=== PATIENT | male | born 1960 | race Hispanic/Latino ===

== ENCOUNTER 2021-03-04 21:02 | Emergency (ER) | payer SELFPAY ==
--- NOTE | 2021-03-04 22:45 | ER ---
Nurse's Notes [facility] Name: Vito Morejon Age: 60 yrs Sex: Male : 1960 Arrival Date: 03/04/2021 Time: 21:07 Bed 14 Private MD: Diagnosis: Irritant contact dermatitis due to plants, except food Presentation: 03/04 21:28 Chief complaint: Patient states: Rash caused by poison Karishma x 2 weeks. Red Rash noted on ca1 L back, L side of chest, vesicular rash on L forearm, L ellbow. Coronavirus screen: Client denies travel out of the [place] in the last 14 days. At this time, the client does not indicate any symptoms associated with coronavirus-19. Ebola Screen: Patient negative for fever greater than or equal to 101.5 degrees Fahrenheit, and additional compatible Ebola Virus Disease symptoms Patient denies exposure to infectious person. Patient denies travel to an Ebola-affected area in the 21 days before illness onset. No symptoms or risks identified at this time. Initial Sepsis Screen: Does the patient meet any 2 criteria? No. Patient's initial sepsis screen is negative. Does the patient have a suspected source of infection? No. Patient's initial sepsis screen is negative. Risk Assessment: Do you want to hurt yourself or someone else? Patient reports no desire to harm self or others. Onset of symptoms was March 04, 2021. 21:28 Method Of Arrival: Ambulatory ca1 21:28 Acuity: RONEY 4 ca1 Historical: - Allergies: 21:30 No Known Allergies; ca1 - Home Meds: 21:30 None [Active]; ca1 - PMHx: 21:30 None; ca1 - Immunization history:: Client reports having NOT received the Covid vaccine. Flu vaccine is not up to date. - Social history:: Smoking status: Patient denies any tobacco usage or history of. Screenin:10 Abuse screen: Denies threats or abuse. Denies injuries from another. Nutritional bs2 screening: No deficits noted. Tuberculosis screening: No symptoms or risk factors identified. Fall Risk None identified. Assessment: 22:10 General: Appears uncomfortable, obese, well groomed, well developed, well nourished, bs2 Behavior is calm, cooperative, appropriate for age. Pain: Denies pain. Neuro: No deficits noted. Cardiovascular: No deficits noted. Respiratory: No deficits noted. GI: No signs and/or symptoms were reported involving the gastrointestinal system. : No signs and/or symptoms were reported regarding the genitourinary system. EENT: No signs and/or symptoms were reported regarding the EENT system. Derm: Rash noted that is draining clear fluid, macular, itchy, raised, vesicular, on back, chest and right arm Reports burning, itching. Vital Signs: 21:28 BP 124 / 68; Pulse 74; Resp 16 S; Temp 97.4(TE); Pulse Ox 99% ; Weight 99.79 kg (R); ca1 Height 5 ft. 6 in. (167.64 cm) (R); Pain 6/10; 22:58 BP 126 / 65 RA Sitting (auto/lg); Pulse 74 MON; Resp 16 S; Temp 98.0(O); Pulse Ox 100% bs2 on R/A; Pain 0/10; 21:28 Body Mass Index 35.51 (99.79 kg, 167.64 cm) ca1 ED Course: 21:07 Patient arrived in ED. cf2 21:30 Triage completed. ca1 21:30 Arm band placed on right wrist. ca1 22:04 Dionte Dutton PA is PHCP. cp 22:04 Carlos Mendosa MD is Attending Physician. cp 22:10 Patient has correct armband on for positive identification. Bed in low position. Call bs2 light in reach. Side rails up X 1. 22:10 No provider procedures requiring assistance completed. bs2 22:18 Judy Mitchell RN is Primary Nurse. bs2 23:05 Patient did not have IV access during this emergency room visit. bs2 Administered Medications: No medications were administered Outcome: 22:44 Discharge ordered by . cp 23:05 Discharged to home ambulatory. bs2 23:05 Condition: stable 23:05 Discharge instructions given to patient, Instructed on discharge instructions, follow up and referral plans. medication usage, Demonstrated understanding of instructions, follow-up care, medications, Prescriptions given X 2. 23:06 Patient left the ED. bs2 Signatures: Dionte Dutton PA PA Lindsey Sunshine RN RN ca1 Thony Collado cf2 Judy Mitchell RN RN bs2
--- NOTE | 2021-03-04 22:45 | EDPHYS ---
Physician Documentation [facility] Name: Vito Morejon Age: 60 yrs Sex: Male : 1960 Arrival Date: 03/04/2021 Time: 21:07 Bed 14 Private MD: ED Physician Carlos Mendosa HPI: 03/04 22:36 This 60 yrs old Male presents to ER via Ambulatory with complaints of Rash. cp 22:36 The patient's rash thought to be caused by contact with poison karishma. The rash is located cp on the back, chest, abdomen and left arm. The rash can be described as vesicular. Onset: The symptoms/episode began/occurred 2 week(s) ago. Associated signs and symptoms: Pertinent positives: burning sensation, itching, Pertinent negatives: difficulty breathing, fever, swelling of lips, swelling of throat, swelling of tongue. Severity of symptoms: in the emergency department the symptoms are worse moderately. Treatment given at home: OTC lotion/cream. Historical: - Allergies: 21:30 No Known Allergies; ca1 - Home Meds: 21:30 None [Active]; ca1 - PMHx: 21:30 None; ca1 - Immunization history:: Client reports having NOT received the Covid vaccine. Flu vaccine is not up to date. - Social history:: Smoking status: Patient denies any tobacco usage or history of. ROS: 22:39 Eyes: Negative for injury, pain, redness, and discharge. cp 22:39 Constitutional: Negative for body aches, chills, fever, poor PO intake. 22:39 ENT: Negative for ear pain, sore throat, difficulty swallowing, difficulty handling secretions. 22:39 Respiratory: Negative for shortness of breath, wheezing. 22:39 Abdomen/GI: Negative for abdominal pain, nausea, vomiting, and diarrhea. 22:39 Skin: Positive for rash, of the left arm and abdomen and chest and back. 22:39 All other systems are negative. Exam: 22:40 Head/Face: Normocephalic, atraumatic. cp 22:40 Constitutional: The patient appears in no acute distress, alert, awake, non-toxic, well developed, well nourished. 22:40 Cardiovascular: Rate: normal. 22:40 Respiratory: the patient does not display signs of respiratory distress, Respirations: normal, no use of accessory muscles, no retractions. 22:40 Skin: rash can be described as vesicular, on the left arm and abdomen and chest and back. Vital Signs: 21:28 BP 124 / 68; Pulse 74; Resp 16 S; Temp 97.4(TE); Pulse Ox 99% ; Weight 99.79 kg (R); ca1 Height 5 ft. 6 in. (167.64 cm) (R); Pain 6/10; 22:58 BP 126 / 65 RA Sitting (auto/lg); Pulse 74 MON; Resp 16 S; Temp 98.0(O); Pulse Ox 100% bs2 on R/A; Pain 0/10; 21:28 Body Mass Index 35.51 (99.79 kg, 167.64 cm) ca1 MDM: 22:36 Patient medically screened. cp 22:42 Differential diagnosis: allergic reaction, dermatitis, cellulitis, herpes zoster. Data cp reviewed: vital signs, nurses notes, and as a result, I will discharge patient. Counseling: I had a detailed discussion with the patient and/or guardian regarding: the historical points, exam findings, and any diagnostic results supporting the discharge/admit diagnosis, to return to the emergency department if symptoms worsen or persist or if there are any questions or concerns that arise at home. Administered Medications: No medications were administered Disposition: 23:21 Co-signature as Attending Physician, Carlos Mendosa MD. rn Disposition Summary: 03/04/21 22:44 Discharge Ordered Location: Home cp Problem: new cp Symptoms: are unchanged cp Condition: Stable cp Diagnosis - Irritant contact dermatitis due to plants, except food cp Followup: cp - With: Private Physician - When: 2 - 3 days - Reason: Worsening of condition Discharge Instructions: - Discharge Summary Sheet cp - Poison Karishma Dermatitis cp Forms: - Medication Reconciliation Form cp - Thank You Letter cp - Antibiotic Education cp - Prescription Opioid Use cp Prescriptions: - Prednisone 20 mg Oral Tablet - take 2 tablets by ORAL route once daily for 5 days then take 1 tablet daily for cp 5 days; 15 tablet; Refills: 0, Product Selection Permitted - Triamcinolone Acetonide 0.5 % Topical Cream - apply 1 application by TOPICAL route 2 times per day As needed apply to areas cp of rash except face; 1 tube; Refills: 0, Product Selection Permitted Signatures: Carlos Mendosa MD MD rn Dionte Dutton PA PA cp Acob, Lindsey, RN RN ca1
[2021-03-04 23:15] VITALS: BP 126/65; TEMP 98; O2SAT 100
== END 2021-03-04 23:06 | disposition home or self-care (01) ==
LOC: ER 21:02
DX: L24.7 Irritant contact dermatitis due to plants, except food (principal)
CPT/HCPCS: 99282

== ENCOUNTER 2021-04-13 08:10 | Inpatient (IN) | payer SELFPAY ==
[2021-04-13] MEDS ORDERED: ACETAMINOPHEN 500 MG TAB ONE (09:07)
[2021-04-13] MEDS ORDERED: NA CHLORIDE 0.9% 1,000 ML ONE ×3 (09:08→21:25)
[2021-04-13] MEDS ORDERED: PIPER/TAZO/NS 3.375gm 3.375 GM/100 ML BAG ONE ×4 (09:08→21:25)
[2021-04-13] MEDS ORDERED: MORPHINE 4 MG/ML SYR ONE (09:08)
[2021-04-13] MEDS ORDERED: ONDANSETRON 4 MG/2 ML VIAL ONE ×4 (09:08→21:25)
[2021-04-13 09:10] LABS: Protime INR 1.4
[2021-04-13 09:30] LABS: ALT/SGPT 44 U/L (12-78); AST/SGOT 31 U/L (15-37); Albumin 3.4 g/dL (3.4-5.0); Alkaline Phosphatase 90 U/L (45-117); BUN Blood Urea Nitrogen 10 mg/dL (7-18); Bicarbonate 22 mmol/L (21-32); Bilirubin Direct 0.3 mg/dL (0-0.2); Bilirubin Total 0.7 mg/dL (0.2-1.0); Glucose Level 248 mg/dL (74-106); Lipase 33 U/L (73-393); Magnesium 1.9 mg/dL (1.8-2.4); NT PRO-BNP 106 pg/mL (<125); Potassium 3.8 mmol/L (3.5-5.1); Sodium Level 134 mmol/L (136-145); Troponin (Emerg Dept Use Only) < 0.02 ng/mL (0.0-0.045)
--- NOTE | 2021-04-13 09:35 | RAD REPORT ---
EXAM DESCRIPTION: RAD - Chest Single View - 04/13/2021 9:16 am CLINICAL HISTORY: ABDOMINAL DISTENTION COMPARISON: None TECHNIQUE: AP portable chest image was obtained 04/13/2021 9:16 am . FINDINGS: Lung volumes are low but clear of a peripheral mass or consolidation. Lung base atelectasi s present. No failure or volume overload. Heart and vasculature are normal. No measurable pleural eff usion and no pneumothorax. No acute bony abnormality seen. No acute aortic findings suspected. IMPRESSION: Limited portable study without acute cardiopulmonary finding.
[2021-04-13] MEDS ORDERED: FAMOTIDINE 20 MG/2 ML VIAL IV ONE (09:39)
[2021-04-13 10:14] LABS: Absolute Lymphocytes (CBC) 0.5 K/uL (0.7-4.9); Basophils % 0.2 % (0-1.3); Hematocrit 37.9 % (39.6-49.0); Lymphocytes % 11.2 % (15.3-44.8); MPV 7.7 fL (7.6-11.3); RBC Red Blood Cell Count 5.31 M/uL (4.33-5.43)
--- NOTE | 2021-04-13 10:20 | RAD REPORT ---
EXAM DESCRIPTION: CT - Abdomen Pelvis W Contrast - 04/13/2021 9:32 am CLINICAL HISTORY: ABD PAIN COMPARISON: Chest Single View dated 04/13/2021 TECHNIQUE: Biphasic, helical CT imaging of the abdomen and pelvis was performed following 100 ml non -ionic IV contrast. No oral contrast administered. All CT scans are performed using dose optimization technique as appropriate and may include automated exposure control or mA/KV adjustment according to patient size. FINDINGS: Scarring and/ or atelectasis changes are present in each lung base with no acute pleural o r parenchymal process suspected. No pericardial thickening or effusion. Liver shows a diffuse fatty infiltration pattern with no focal liver lesion. No portal vein abnormali ty identified. Pancreas and spleen also without focal abnormalities. Gallbladder and biliary tree are also without suspicious finding. Gallstones can be occult on CT imaging. Symmetric renal function is seen with no hydronephrosis or suspicious renal mass. No pyelonephritis o r acute parenchymal process. Contracted urinary bladder shows no gross abnormality. No adrenal abnorm alities. No gastric dilatation or wall thickening. Prominent fluid-filled small bowel loops are present. Story are mildly prominent. This is believed to be reactive enteritis from subsequently detailed findings. The appendix is abnormal. Although air filled, the appendix is enlarged with poorly defined story. Th ere is edematous/inflammatory stranding throughout the periappendiceal fat with small amounts of free intraperitoneal fluid present. Several punctate peritoneal extraluminal free air collections are not ed. There is no abscess or drainable fluid collection at this time. Tip of the cecum is slightly thic kened. Large intestine is otherwise unremarkable. No mass or bulky lymphadenopathy. No abdominal wall hernia seen. No suspicious bony findings. Findings discussed by telephone with the referring physician 10:15 a.m.. IMPRESSION: Perforated appendicitis. Air, fluid and stranding are present in the peritoneal cavity primarily in the periappendiceal region. There is no abscess at this time. Prominent fluid-filled small bowel loops likely secondary response to the perforated appendicitis. No small bowel obstruction. Diffuse fatty infiltration of the liver.
--- NOTE | 2021-04-13 10:29 | EDPHYS ---
Physician Documentation [facility] Name: Vito Morejon Age: 60 yrs Sex: Male : 1960 Arrival Date: 04/13/2021 Time: 08:31 Bed 19 Private MD: ED Physician Dionte Smith HPI: 04/13 10:09 This 60 yrs old Male presents to ER via EMS with complaints of GI Bleeding. varun 10:09 The patient presents to the emergency department with rectal bleeding, a small amount. varun Historical: - Allergies: 09:16 No Known Allergies; tr6 - Home Meds: 09:16 None [Active]; tr6 - PMHx: 09:16 None; tr6 - PSHx: 09:16 None; tr6 - Immunization history:: Adult Immunizations up to date, Client reports having NOT received the Covid vaccine. - Social history:: Smoking status: unknown Patient uses alcohol, on a daily basis. claims drinking about a 6 pack/day. ROS: 10:11 Eyes: Negative for injury, pain, redness, and discharge, ENT: Negative for injury, varun pain, and discharge, Neck: Negative for injury, pain, and swelling, Respiratory: Negative for shortness of breath, cough, wheezing, and pleuritic chest pain, Back: Negative for injury and pain, : Negative for injury, bleeding, discharge, and swelling, MS/Extremity: Negative for injury and deformity, Skin: Negative for injury, rash, and discoloration, Neuro: Negative for headache, weakness, numbness, tingling, and seizure, Psych: Negative for depression, anxiety, suicide ideation, homicidal ideation, and hallucinations, Allergy/Immunology: Negative for hives, rash, and allergies, Endocrine: Negative for neck swelling, polydipsia, polyuria, polyphagia, and marked weight changes, Hematologic/Lymphatic: Negative for swollen nodes, abnormal bleeding, and unusual bruising. 10:11 Constitutional: Positive for chills, fever, malaise. 10:11 Cardiovascular: Positive for palpitations. 10:11 Respiratory: Positive for cough. 10:11 Abdomen/GI: Positive for abdominal pain, abdominal cramps, abdominal distension, of the right upper quadrant, left upper quadrant, right lower quadrant and left lower quadrant. Exam: 10:11 Constitutional: This is a well developed, well nourished patient who is awake, alert, varun and in no acute distress. Head/Face: Normocephalic, atraumatic. Eyes: Pupils equal round and reactive to light, extra-ocular motions intact. Lids and lashes normal. Conjunctiva and sclera are non-icteric and not injected. Cornea within normal limits. Periorbital areas with no swelling, redness, or edema. ENT: Nares patent. No nasal discharge, no septal abnormalities noted. Tympanic membranes are normal and external auditory canals are clear. Oropharynx with no redness, swelling, or masses, exudates, or evidence of obstruction, uvula midline. Mucous membranes moist. Neck: Trachea midline, no thyromegaly or masses palpated, and no cervical lymphadenopathy. Supple, full range of motion without nuchal rigidity, or vertebral point tenderness. No Meningismus. Chest/axilla: Normal chest wall appearance and motion. Nontender with no deformity. No lesions are appreciated. Cardiovascular: Regular rate and rhythm with a normal S1 and S2. No gallops, murmurs, or rubs. Normal PMI, no JVD. No pulse deficits. Respiratory: Lungs have equal breath sounds bilaterally, clear to auscultation and percussion. No rales, rhonchi or wheezes noted. No increased work of breathing, no retractions or nasal flaring. Back: No spinal tenderness. No costovertebral tenderness. Full range of motion. Male : Normal genitalia with no discharge or lesions. Skin: Warm, dry with normal turgor. Normal color with no rashes, no lesions, and no evidence of cellulitis. MS/ Extremity: Pulses equal, no cyanosis. Neurovascular intact. Full, normal range of motion. Neuro: Awake and alert, GCS 15, oriented to person, place, time, and situation. Cranial nerves II-XII grossly intact. Motor strength 5/5 in all extremities. Sensory grossly intact. Cerebellar exam normal. Normal gait. Psych: Awake, alert, with orientation to person, place and time. Behavior, mood, and affect are within normal limits. 10:11 Cardiovascular: Rate: tachycardic, Rhythm: regular, Pulses: Pulses are 4+ in bilateral radial, brachial, femoral, popliteal, posterior tibial and and dorsalis pedis arteries.. Heart sounds: normal, normal S1and S2, no S3 or S4, no murmur, no rub, no gallop, Edema: is not appreciated, JVD: is not appreciated. 10:11 ECG was reviewed by the Attending Physician. 10:11 Abdomen/GI: Inspection: distension, that is moderate, Bowel sounds: normal, Palpation: moderate abdominal tenderness, in the right upper quadrant, left upper quadrant, right lower quadrant and left lower quadrant, Liver: no appreciated palpable abnormalities, Hernia: not appreciated. Vital Signs: 08:56 BP 117 / 79; Pulse 132; Resp 20 S; Temp 103.1; Pulse Ox 96% on R/A; iw 09:14 BP 105 / 58; Pulse 133; Resp 18; Temp 103.2; Pulse Ox 94% on R/A; Weight 99.79 kg; tr6 09:47 BP 106 / 63; Pulse 127; Resp 19 S; Pulse Ox 98% on R/A; jd3 11:27 BP 87 / 59; Pulse 113; Resp 19 S; Pulse Ox 95% on R/A; jd3 14:13 BP 90 / 59; Pulse 121; Resp 17 S; Pulse Ox 96% on R/A; jd3 14:28 BP 93 / 63; Pulse 119; Resp 20 S; Temp 99.4(O); Pulse Ox 97% on R/A; jd3 MDM: 08:31 Patient medically screened. varun 10:29 Differential diagnosis: gastritis, diverticulitis, appendicitis, bowel obstruction, varun coronary artery disease, cholecystitis, Cholelithiasis, diverticulitis, gastritis, Mesenteric ischemia or infarction, non-specific abd pain, pancreatitis, Peptic Ulcer Disease, Perf. Duodenal Ulcer, urinary tract infection. Data reviewed: vital signs, nurses notes, lab test result(s), EKG, radiologic studies, CT scan, plain films. Data interpreted: quality assurance monitor chassis: rate is 127 beats/min, rhythm is regular, Pulse oximetry: on room air is 127 %. Test interpretation: by ED physician or midlevel provider: ECG, plain radiologic studies. Counseling: I had a detailed discussion with the patient and/or guardian regarding: the historical points, exam findings, and any diagnostic results supporting the discharge/admit diagnosis, lab results, radiology results, the need for further work-up and treatment in the hospital. 04/13 08:33 Order name: Basic Metabolic Panel; Complete Time: 10:09 varun 04/13 08:33 Order name: CBC with Diff; Complete Time: : [facility] 04/13 08:33 Order name: LFT's; Complete Time: : [facility] 04/13 08:33 Order name: Magnesium; Complete Time: 10: [facility] 04/13 08:33 Order name: NT PRO-BNP; Complete Time: 10: [facility] 04/13 08:33 Order name: PT-INR; Complete Time: 10: [facility] 04/13 08:33 Order name: Troponin (emerg Dept Use Only); Complete Time: 10: [facility] 04/13 08:33 Order name: Lipase; Complete Time: 10: [facility] 04/13 08:33 Order name: Type And Screen; Complete Time: : [facility] 04/13 10:16 Order name: CBC Smear Scan; Complete Time: : [facility] 04/13 10:41 Order name: SARS-COV-2 RT PCR; Complete Time: : [facility] 04/13 10:43 Order name: CREATININE WHOLE BLOOD; Complete Time: : [facility] 04/13 12:30 Order name: ABO/RH no charge; Complete Time: : [facility] 04/13 08:33 Order name: XRAY Chest (1 view); Complete Time: : [facility] 04/13 08:33 Order name: CT Abd/Pelvis - IV Contrast Only; Complete Time: : [facility] 04/13 21:35 Order name: CBC with Manual Differential tr6 04/13 21:53 Order name: CBC with Manual Differential; Complete Time: 07:20 [facility] 04/13 22:43 Order name: Hemoglobin A1c; Complete Time: 07:20 [facility] 04/14 01:56 Order name: CBC with Automated Diff; Complete Time: 07:20 [facility] 04/14 02:05 Order name: Basic Metabolic Panel; Complete Time: 07:20 [facility]MS 04/14 02:05 Order name: Phosphorus; Complete Time: 07:20 [facility] 04/14 02:05 Order name: Magnesium; Complete Time: 07:20 [facility] 04/14 02:08 Order name: Lactate; Complete Time: 07:20 [facility]MS 04/14 02:59 Order name: Procalcitonin; Complete Time: 07:20 [facility]MS 04/14 06:55 Order name: Wound Culture EDMS 04/14 06:58 Order name: Anaerobic Culture; Complete Time: 07:20 [facility] 04/14 17:45 Order name: Glucose, Ancillary Testing EDMS 04/13 08:33 Order name: EKG; Complete Time: 08:34 [facility] 04/13 08:33 Order name: Cardiac monitoring; Complete Time: 09:14 [facility] 04/13 08:33 Order name: EKG - Nurse/Tech; Complete Time: 09:14 [facility] 04/13 08:33 Order name: IV Saline Lock; Complete Time: 09:14 [facility] 04/13 08:33 Order name: Labs collected and sent; Complete Time: 09:14 [facility] 04/13 08:33 Order name: O2 Per Protocol; Complete Time: 09:14 [facility] 04/13 08:33 Order name: O2 Sat Monitoring; Complete Time: 09:14 [facility] 04/13 10:26 Order name: CONS Physician Consult EDMS EC:11 Rate is 131 beats/min. Rhythm is regular. QRS [place] is Normal. VT interval is normal. [facility] QRS interval is normal. QT interval is normal. No Q waves. T waves are Normal. No ST changes noted. Clinical impression: Sinus tachycardia and No evidence of ischemia. Interpreted by me. Reviewed by me. Administered Medications: 08:54 Drug: Tylenol 1000 mg Route: PO; iw 08:55 Drug: NS 0.9% 1000 ml Route: IV; Rate: 1 bolus; Site: left antecubital; iw 08:55 Drug: morphine 4 mg Route: IVP; Site: left antecubital; iw 08:55 Drug: Zofran (Ondansetron) 4 mg Route: IVP; Site: left antecubital; iw 09:47 Drug: Zosyn (piperacillin-tazobactam) 3.375 grams Route: IVPB; Infused Over: 60 mins; jd3 Site: left antecubital; 09:47 Drug: Pepcid (famotidine) 20 mg Route: IVP; Site: left antecubital; jd3 21:36 Drug: NS 0.9% 500 ml Route: IV; Rate: bolus; Site: left antecubital; em 22:01 Drug: NS 0.9% 500 ml Route: IV; Rate: bolus; Site: left antecubital; em Disposition Summary: 04/13/21 10:29 Hospitalization Ordered Hospitalization Status: Inpatient Admission [facility] Provider: Pool Jacobs cha Condition: Stable varun Problem: new varun Symptoms: have improved varun Bed/Room Type: Standard varun Location: Telemetry/MedSurg (Inpatient)(04/14/21 19:48) Room Assignment: 208(04/14/21 19:48) mw Diagnosis - Acute appendicitis with generalized peritonitis - perforated varun - Obesity, unspecified varun - Fever, unspecified varun Forms: - Medication Reconciliation Form varun - SBAR form varun Signatures: Dispatcher [employer] EDMS Nessa Che RN RN mw Anderson, Corey, MD MD cha Munoz, Edgar RN Alexus Thacker RN RN iw Carlos Enrique Jay, VETERINARIAN HELPER-C VETERINARIAN HELPER-Corie1 Federico Dominique RN RN Bridget Pozo RN RN tr6 Corrections: (The following items were deleted from the chart) 09:45 08:34 CORONAVIRUS+MR.LAB.BRZ ordered. EDMS EDMS 10:31 10:29 Elevated white blood cell count varun [facility] 16:58 10:29 Telemetry/MedSurg (Inpatient) [facility] 16:58 10:29 varun 04/14 19:48 04/13 16:58 [facility] ER HOLD [facility] 04/14 19:48 04/13 16:58 ERHOLD- [facility]
--- NOTE | 2021-04-13 10:29 | ER ---
Nurse's Notes [facility] Name: Vito Morejon Age: 60 yrs Sex: Male : 1960 Arrival Date: 04/13/2021 Time: 08:31 Bed 19 Private MD: Diagnosis: Acute appendicitis with generalized peritonitis-perforated;Obesity, unspecified;Fever, unspecified Presentation: 04/13 09:14 Chief complaint: EMS states: lower abdominal pain since Tuesday. bright red blood in tr6 stool several times. fever. Coronavirus screen: Client presents with at least one sign or symptom that may indicate coronavirus-19. Standard/surgical mask placed on the client. Provider contacted for isolation considerations. Ebola Screen: No symptoms or risks identified at this time. Initial Sepsis Screen: Does the patient meet any 2 criteria? Temp <36.0*C (96.8*F)) or > 38.3*C (100.9*F). HR > 90 bpm. Yes Does the patient have a suspected source of infection? No. Patient's initial sepsis screen is negative. Risk Assessment: Do you want to hurt yourself or someone else? Patient reports no desire to harm self or others. Onset of symptoms is unknown. 09:14 Method Of Arrival: EMS: [facility] tr6 09:14 Acuity: RONEY 2 tr6 Triage Assessment: 09:16 General: Appears uncomfortable, Behavior is calm, cooperative, appropriate for age. tr6 Pain: Complains of pain in lower abdomen. EENT: No deficits noted. Neuro: No deficits noted. Cardiovascular: Rhythm is sinus tachycardia. Respiratory: No deficits noted. GI: Abdomen is round distended, obese, Last BM was April 13, 2021. Abdomen is tender to palpation in right lower quadrant and left lower quadrant Reports lower abdominal pain, bloating, rectal bleeding. : No deficits noted. Derm: No deficits noted. Musculoskeletal: No deficits noted. Historical: - Allergies: 09:16 No Known Allergies; tr6 - Home Meds: 09:16 None [Active]; tr6 - PMHx: 09:16 None; tr6 - PSHx: 09:16 None; tr6 - Immunization history:: Adult Immunizations up to date, Client reports having NOT received the Covid vaccine. - Social history:: Smoking status: unknown Patient uses alcohol, on a daily basis. claims drinking about a 6 pack/day. Screenin:19 Abuse screen: Denies threats or abuse. Denies injuries from another. Nutritional tr6 screening: No deficits noted. Tuberculosis screening: No symptoms or risk factors identified. Fall Risk None identified. Assessment: 09:48 General: Appears in no apparent distress. uncomfortable, Behavior is calm, cooperative, jd3 appropriate for age. Pain: Complains of pain in right lower quadrant and left lower quadrant Quality of pain is described as aching, pressure, tender. Neuro: Level of Consciousness is awake, alert, obeys commands, Oriented to person, place, time, situation. Cardiovascular: Denies chest pain, Capillary refill < 3 seconds Patient's skin is warm and dry. Respiratory: Airway is patent Respiratory effort is even, unlabored, Respiratory pattern is regular, symmetrical, Denies cough, shortness of breath. GI: Abdomen is round distended, Abd is soft in right upper quadrant and left upper quadrant Abdomen is tender to palpation in right lower quadrant and left lower quadrant. : No signs and/or symptoms were reported regarding the genitourinary system. EENT: No signs and/or symptoms were reported regarding the EENT system. Derm: Skin is intact, Skin is dry, Skin is normal, Skin temperature is warm. Musculoskeletal: Circulation, motion, and sensation intact. Range of motion: intact in all extremities. 11:27 Reassessment: Patient appears in no apparent distress at this time. No changes from jd3 previously documented assessment. Patient and/or family updated on plan of care and expected duration. Pain level reassessed. Patient is alert, oriented x 3, equal unlabored respirations, skin warm/dry/pink. 14:13 Reassessment: Patient appears in no apparent distress at this time. No changes from jd3 previously documented assessment. Patient and/or family updated on plan of care and expected duration. Pain level reassessed. Patient is alert, oriented x 3, equal unlabored respirations, skin warm/dry/pink. 14:29 Reassessment: Patient appears in no apparent distress at this time. Patient and/or jd3 family updated on plan of care and expected duration. Pain level reassessed. Patient is alert, oriented x 3, equal unlabored respirations, skin warm/dry/pink. pt taken to OR with OR nurse. 17:24 Reassessment: report received from recovery. pt to be received back to room. charting jd3 to continue in [facility]. Vital Signs: 08:56 BP 117 / 79; Pulse 132; Resp 20 S; Temp 103.1; Pulse Ox 96% on R/A; iw 09:14 BP 105 / 58; Pulse 133; Resp 18; Temp 103.2; Pulse Ox 94% on R/A; Weight 99.79 kg; tr6 09:47 BP 106 / 63; Pulse 127; Resp 19 S; Pulse Ox 98% on R/A; jd3 11:27 BP 87 / 59; Pulse 113; Resp 19 S; Pulse Ox 95% on R/A; jd3 14:13 BP 90 / 59; Pulse 121; Resp 17 S; Pulse Ox 96% on R/A; jd3 14:28 BP 93 / 63; Pulse 119; Resp 20 S; Temp 99.4(O); Pulse Ox 97% on R/A; jd3 ED Course: 08:31 Patient arrived in ED. iw 08:31 Dionte Smith MD is Attending Physician. varun 08:54 Alexus Reyes, MERLINE is Primary Nurse. iw 09:14 Maintain EMS IV. Dressing intact. Good blood return noted. Site clean \T\ dry. Gauge \T\ tr 6 site: 20 LAC. 09:15 XRAY Chest (1 view) In Process Unspecified. EDMS 09:16 Triage completed. tr6 09:19 Resting quietly. Patient moved to CT. tr6 09:19 No provider procedures requiring assistance completed. tr6 09:19 Patient has correct armband on for positive identification. Placed in gown. Bed in low tr6 position. Call light in reach. Side rails up X 1. classroom monitor on. Pulse ox on. NIBP on. Door closed. Noise minimized. Visitors limited. Lights dimmed. Moved to private room. Diet: Patient is NPO. 09:20 Patient placed in an exam room, Patient notified of wait time. tr6 09:32 CT Abd/Pelvis - IV Contrast Only In Process Unspecified. EDMS 10:17 Pool Jacobs DO is Hospitalizing Provider. varun 14:13 Federico Dominique, MERLINE is Primary Nurse. jd3 14:30 Patient admitted, IV remains in place. jd3 Administered Medications: 08:54 Drug: Tylenol 1000 mg Route: PO; iw 08:55 Drug: NS 0.9% 1000 ml Route: IV; Rate: 1 bolus; Site: left antecubital; iw 08:55 Drug: morphine 4 mg Route: IVP; Site: left antecubital; iw 08:55 Drug: Zofran (Ondansetron) 4 mg Route: IVP; Site: left antecubital; iw 09:47 Drug: Zosyn (piperacillin-tazobactam) 3.375 grams Route: IVPB; Infused Over: 60 mins; jd3 Site: left antecubital; 09:47 Drug: Pepcid (famotidine) 20 mg Route: IVP; Site: left antecubital; jd3 21:36 Drug: NS 0.9% 500 ml Route: IV; Rate: bolus; Site: left antecubital; em 22:01 Drug: NS 0.9% 500 ml Route: IV; Rate: bolus; Site: left antecubital; em Outcome: 10:29 Decision to Hospitalize by Provider. varun 14:29 Admitted to OR accompanied by nurse, via stretcher, with chart. jd3 14:29 Condition: stable 14:29 Instructed on the need for admit. 04/14 21:25 Patient left the ED. em Signatures: Dispatcher [employer] Dionte Allen MD MD cha Munoz, Edgar RN Alexus Thacker RN RN iw Davies, Jonathon, RN RN jd3 Ramnanan, Tiffany, RN RN tr6
[2021-04-13 10:55] LABS: Blood Morphology Comment NOT SEEN (NOT SEEN); Platelet Estimate ADEQ; White Blood Cell Scan OK (OK)
[2021-04-13] MEDS ORDERED: propofoL 200 MG/20 ML VIAL IV ONE (14:44)
[2021-04-13] MEDS ORDERED: LIDOCAINE 2% MPF 5 ML VIAL ONE (14:44)
[2021-04-13] MEDS ORDERED: MIDAZOLAM HCL 2 MG/2 ML INJ ONE (14:44)
[2021-04-13] MEDS ORDERED: ROCURONIUM 50 MG/5 ML VIAL IV ONE (14:45)
[2021-04-13] MEDS ORDERED: FENTANYL CITR 250 MCG/5 ML ONE (14:45)
[2021-04-13] MEDS ORDERED: ONDANSETRON 4 MG/2 ML VIAL IV PRN (15:03)
[2021-04-13] MEDS ORDERED: MORPHINE 4 MG/ML SYR IV PRN (15:03)
[2021-04-13] MEDS ORDERED: ACETAMINOPHEN 325 MG TABLET PO PRN (15:03)
[2021-04-13] MEDS ORDERED: Ringers Lactate 1,000 ML IV ONE ×2 (15:04→17:09)
[2021-04-13] MEDS ORDERED: BUPIVACAINE 0.5% PF 10 ML VIAL ONE (15:07)
[2021-04-13] MEDS ORDERED: SUCCINYLCHOLINE 20 MG/ML (10 ML) IV ONE (15:09)
[2021-04-13] MEDS ORDERED: NS 0.9% VIAL 10 ML ONE (15:51)
[2021-04-13] MEDS ORDERED: ETOMIDATE 20 MG/10 ML VIAL IV ONE (15:51)
[2021-04-13] MEDS ORDERED: Phenylephrine HCl 10 MG/ML 1 ML VIAL ONE (15:51)
[2021-04-13] MEDS ORDERED: KETOROLAC 30 MG/ML INJ ONE (16:08)
[2021-04-13] MEDS ORDERED: GLYCOPYRROLATE 0.2 MG/ML SYR ONE ×2 (16:20→16:21)
[2021-04-13] MEDS ORDERED: NEOSTIGMINE 1 MG/ML -5 ML ONE (16:39)
--- NOTE | 2021-04-13 16:39 | P.OP ---
Dairy Frozen Manager: Camden TURNER Preoperative diagnosis: Acute Perforated Appendicitis Postoperative diagnosis: Acute Gangrenous Perforated Appendicitis Primary procedure: Diagnostic Laparascopy, Open Appendectomy Anesthesia: General Estimated blood loss: min Specimen: Appy Findings: as above Complications: None Drain(s): Nasogastric, Urinary catheter, MARQUEZ drain Transferred to: Recovery Room Condition: Good
--- NOTE | 2021-04-13 18:24 | P.HP ---
Certification for Inpatient Patient admitted to: Inpatient With expected LOS: >2 Midnights Patient will require the following post-hospital care: None Practitioner: I am a practitioner with admitting privileges, knowledge of patient current condition, hospital course, and medical plan of care. Services: Services provided to patient in accordance with Admission requirements found in Title 42 Section 412.3 of the Code of Federal Regulations Patient History Date of Service: 04/13/21 Primary Care Provider: none Reason for admission: perforated appendicitis History of Present Illness: This is a 60 y/o M with no prior medical history who presents today for acute abdominal pain x 1 day. Pain is constant and diffuse, greater on R>L side. C/o nausea, vomiting, fever. Denies chills. Found to have perforated appendicitis in ED. abd CT: IMPRESSION: Perforated appendicitis. Air, fluid and stranding are present in the peritoneal cavity primarily in the periappendiceal region. There is no abscess at this time. CXR: IMPRESSION: Limited portable study without acute cardiopulmonary finding. Allergies No Known Allergies Allergy (Unverified 04/13/21 12:14) - Past Medical/Surgical History Past Medical History: Patient denies medical history Past Surgical History: Patient denies surgical history - Family History Brother -: Diabetes Notes: lives with - Social History Smoking Status: Former smoker Alcohol use: Yes CD- Drugs: No Caffeine use: No Review of Systems 10-point ROS is otherwise unremarkable Physical Examination - Vital Signs Temperature: 97.7 F Blood Pressure: 108/65 Pulse: 101 Respirations: 18 - Physical Exam General: Alert, Oriented x3, Cooperative HEENT: Atraumatic, Normocephalic, Mucous membr. moist/pink, EOMI Neck: Supple Respiratory: Clear to auscultation bilaterally, Normal air movement Cardiovascular: No edema, Normal S1 S2 Capillary refill: <2 Seconds Gastrointestinal: Normal bowel sounds, Tenderness (diffuse tenderness in all quadrants), Guarding Musculoskeletal: No swelling, No contractures Integumentary: No rashes, No cyanosis Neurological: Normal speech, Normal tone, Normal affect - Studies Laboratory Data (last 24 hrs) 04/13/21 08:48: PT 16.1 H, INR 1.40 04/13/21 08:48: WBC 4.10 L, Hgb 11.9 L, Hct 37.9 L, Plt Count 268 04/13/21 08:48: Sodium 134 L, Potassium 3.8, BUN 10, Creatinine 1.16, Glucose 248 H, Magnesium 1.9, Total Bilirubin 0.7, AST 31, ALT 44, Alkaline Phosphatase 90, Lipase 33 L Assessment and Plan - Plan impression: acute appendicitis with perforation plan: imaging consistent with perforated appendicitis open appendectomy with Dr. Rosales this afternoon patient will require close observation and monitoring s/p appy telemetry NPO IVF IV antibiotics pain control cultures pending DVT prophylaxis: SCD today. start lovenox tomorrow am Discharge Plan: Home Plan to discharge in: Greater than 2 days - Advance Directives Does patient have a Living Will: No Does patient have a Durable POA for Healthcare: No - Code Status/Comfort Care Code Status Assessed: Yes (full) Time Spent Managing Pts Care (In Minutes): 70
[2021-04-13] MEDS: NA CHLORIDE 0.9% 1,000 ML IV SCH ×2 (18:30→19:45)
[2021-04-13] MEDS: PIPER/TAZO/NS 3.375gm 3.375 GM/100 ML BAG IVPB SCH (18:30)
--- NOTE | 2021-04-13 19:04 | PREOPCON ---
Date of Consultation: 04/13/2021 Reason: Abdominal pain. History Of Present Illness: The patient is a 60-year-old gentleman, comes in with diffuse abdominal pain for 2 days associated with associated with nausea, but no vomiting. He has had low grade fever. Subjective in nature. No diarrhea and no constipation. Occasional blood in his stool. No dysuria or hematuria. No sore throat, runny nose, cough, headaches, or dizziness. No chest pain. Review of Systems: Otherwise unremarkable. Past Medical History: Negative. Past Surgical History: Negative. Allergies: NO ALLERGIES. Social History: He does not smoke. Drinks occasionally. Physical Examination: Vital Signs: show tachycardia with pulse rate in the 120 to 130. Temperature at that time was 103.2 , currently is 99 after Tylenol suppository was given. General: He is awake, alert, and oriented x3 . Head and neck: Cranial nerves 2 through 12 grossly within normal limits. No neck masses. No JVD. Throat clear. Neck is supple. Chest: Clear. Heart: S1, S2. Abdomen: Distended. Hypoactive bowel sounds. Diffuse tenderness with rebound. No rigidity or guar ding. Extremities: Adequate perfusion. Nontender. Neuro: Nonfocal. Diagnostic Data: White count is 4.1 with a left shift. INR is 1.4. Chemistry reviewed, essentially unremarkable. COVID test is negative. CT of the abdomen and pelvis reviewed with the radiologist, shows perforated appendicitis, air fluid present in the peritoneal cavity, prominently in the periappendiceal region. There is no abscess at this time. Prominent fluid filled small bowel lo ops, likely secondary response to perforated appendicitis. No small bowel obstruction. Diffuse fatt y infiltration of the liver. Assessment: Acute perforated appendicitis. Plan: Admit; n.p.o.; IV fluid; IV antibiotic; to the OR for lap appy, possible open. More than like ly it will be an open procedure because of the extent of infection that the patient presents with and he will need a very good washout and drains placed. He understands risks, benefits, and alternative s and agrees to procedure. /MODL Voice ID: [id number] Report ID: [id number]
[2021-04-13] MEDS ORDERED: FAMOTIDINE 20 MG/2 ML VIAL IV SCH (21:00)
[2021-04-13] MEDS ORDERED: HYDROMORPHONE HCL 2 MG/ML inj ONE (21:24)
[2021-04-13 21:46] LABS: Absolute Lymphocytes (CBC) 0.8 K/uL (0.7-4.9); Basophils % 0.1 % (0-1.3); Hematocrit 31.5 % (39.6-49.0); Lymphocytes % 9.1 % (15.3-44.8); MPV 7.4 fL (7.6-11.3); RBC Red Blood Cell Count 4.45 M/uL (4.33-5.43)
[2021-04-13] MEDS ORDERED: NA CHLORIDE 0.9% 500 ML ONE ×2 (21:53→22:21)
[2021-04-13 22:21] LABS: Blood Morphology Comment NOT SEEN (NOT SEEN); Platelet Estimate ADEQ
--- NOTE | 2021-04-13 23:47 | OP ---
Date of Procedure: 04/13/2021 Surgeon: Richard Rosales MD Compounding Technician: YUE Nichole Preoperative Diagnosis: Acute perforated appendicitis. Postoperative Diagnosis: Acute perforated appendicitis with acute gangrenous perforated appendicitis . Estimated Blood Loss: Minimal. Specimen: Appendix and pus. Findings: As above. Anesthesia: General. Complications: None. Drains: MARQUEZ #10 flat. Disposition: The patient tolerated the procedure in stable condition, taken to Recovery in good gene ral condition. Operative Note: The patient was brought to the OR and placed in supine position. General anesthesia was begun. The patient was prepped and draped in the usual sterile fashion. First, Marcaine 0.5% w as infiltrated just above the umbilicus. A 2 cm incision was made. Subcutaneous tissue was divided. Fascia identified and divided. #1 Vicryl stay suture was placed. Peritoneal cavity was entered with sharp and blunt dissection. A 12 mm trocar was placed into the peritoneal cavity and pneumoperitoneum was established which showed a very dilated small bowel with fibrinous exudate, pus everywhere. Could not visualize any valve of the appendix because of the extensive adhesions that were present. I felt it was unsafe to proceed l aparoscopically, based on the clinical findings and the fact that we already knew it was perforated a nd patient had pus everywhere and needed a good washout and the small bowel was too tenuous for mobil ization and movement and we could inadvertently cause damage to the small bowel. Therefore, I opted for an open procedure. A 20 blade was used to make an incision just above the umbilicus through the previous. Subcutaneous tissue was divided. Fascia was identified and divided. Then, a full explora tory laparotomy done. The patient had extensive purulence throughout the abdomen with fibrinous exud ate. Most of the fibrinous exudate was removed and pus was evacuated. Cultures were done. Then, ex ploratory laparotomy revealed the aforementioned findings. We dilated small bowel. Care was taken n ot to injure the small bowel and then the cecum was identified, and the appendix was identified, it w as perforated, was gangrenous. Base of the appendix on the cecum was identified. The base itself wa s healthy appearing. An Endo-GUILLERMO stapling device was used in a sequential fashion to divide the meso appendix and base of the appendix on the cecum and then the appendix was removed and sent to Patholog y as specimen. Then, thorough irrigation with approximately 5 L of saline was done in the abdomen un til effluent was clear. It was done above the liver, below the liver, on both pericolic gutters, the pelvis, and in the middle of the small bowel area until the effluent was clear. Then, a Chai-Pra tt drain #10 flat was placed in the pelvis and the right lower quadrant, secured with 3-0 nylon. The n, the midline fascia was closed with #2 nylon running suture. Subcutaneous wounds were irrigated. Bleeding controlled with cautery. Some of the tissue was brought together with 3-0 chromic and then toni were used to close the skin. Sterile dressing was applied. Patient was awakened and taken t o Recovery in good general condition. /MODL Voice ID: [id number] Report ID: [id number]
[2021-04-14 01:39] LABS: Absolute Lymphocytes (CBC) 0.8 K/uL (0.7-4.9); Basophils % 0.2 % (0-1.3); Hematocrit 30.4 % (39.6-49.0); Lymphocytes % 8.7 % (15.3-44.8); MPV 7.4 fL (7.6-11.3); RBC Red Blood Cell Count 4.22 M/uL (4.33-5.43)
[2021-04-14] MEDS: PIPER/TAZO/NS 3.375gm 3.375 GM/100 ML BAG IVPB SCH ×3 (02:00→17:00)
[2021-04-14 02:03] LABS: Magnesium 1.8 mg/dL (1.8-2.4); Phosphorus 2.4 mg/dL (2.5-4.9); Potassium 3.9 mmol/L (3.5-5.1)
[2021-04-14] MEDS: NA CHLORIDE 0.9% 1,000 ML IV SCH ×3 (03:45→19:45)
[2021-04-14] MEDS ORDERED: HYDROMORPHONE HCL 1 MG/ML INJ IV ONE ×2 (03:45→06:30)
[2021-04-14] MEDS ORDERED: HYDROMORPHONE HCL 2 MG/ML inj ONE ×2 (04:12→06:57)
--- NOTE | 2021-04-14 06:49 | P.PN ---
Subjective Date of Service: 04/14/21 Primary Care Provider: none Chief Complaint: perforated appendicitis Subjective: Other (Some improvement noted. Patient on room air. NG tube in place.) Physical Examination - Vital Signs Temperature: 97.7 F Blood Pressure: 108/65 Pulse: 101 Respirations: 15 Pulse Ox (%): 96 - Studies Laboratory Data (last 24 hrs) 04/13/21 08:48: PT 16.1 H, INR 1.40 04/13/21 08:48: WBC 4.10 L, Hgb 11.9 L, Hct 37.9 L, Plt Count 268 04/13/21 08:48: Sodium 134 L, Potassium 3.8, BUN 10, Creatinine 1.16, Glucose 248 H, Magnesium 1.9, Total Bilirubin 0.7, AST 31, ALT 44, Alkaline Phosphatase 90, Lipase 33 L Assessment & Plan Discharge Plan: Home Plan to discharge in: Greater than 2 days Physician Review Additional Text: COVID: Negative CT scan: COMPARISON: Chest Single View dated 04/13/2021 TECHNIQUE: Biphasic, helical CT imaging of the abdomen and pelvis was performed following 100 ml non-ionic IV contrast. No oral contrast administered. All CT scans are performed using dose optimization technique as appropriate and may include automated exposure control or mA/KV adjustment according to patient size. FINDINGS: Scarring and/ or atelectasis changes are present in each lung base with no acute pleural or parenchymal process suspected. No pericardial thickening or effusion. Liver shows a diffuse fatty infiltration pattern with no focal liver lesion. No portal vein abnormality identified. Pancreas and spleen also without focal abnormalities. Gallbladder and biliary tree are also without suspicious finding. Gallstones can be occult on CT imaging. Symmetric renal function is seen with no hydronephrosis or suspicious renal mass. No pyelonephritis or acute parenchymal process. Contracted urinary bladder shows no gross abnormality. No adrenal abnormalities. No gastric dilatation or wall thickening. Prominent fluid-filled small bowel loops are present. Story are mildly prominent. This is believed to be reactive enteritis from subsequently detailed findings. The appendix is abnormal. Although air filled, the appendix is enlarged with poorly defined story. There is edematous/inflammatory stranding throughout the periappendiceal fat with small amounts of free intraperitoneal fluid present. Several punctate peritoneal extraluminal free air collections are noted. There is no abscess or drainable fluid collection at this time. Tip of the cecum is slightly thickened. Large intestine is otherwise unremarkable. No mass or bulky lymphadenopathy. No abdominal wall hernia seen. No suspicious bony findings. IMPRESSION: Perforated appendicitis. Air, fluid and stranding are present in the peritoneal cavity primarily in the periappendiceal region. There is no abscess at this time. Prominent fluid-filled small bowel loops likely secondary response to the perforated appendicitis. No small bowel obstruction. Diffuse fatty infiltration of the liver. Surgery: Date of Procedure: 04/13/2021 Surgeon: Richard Rosales MD Insurance Office Supervisor: YUE Nichole Preoperative Diagnosis: Acute perforated appendicitis. Postoperative Diagnosis: Acute perforated appendicitis with acute gangrenous perforated appendicitis. Estimated Blood Loss: Minimal. Specimen: Appendix and pus. Findings: As above. Anesthesia: General. Complications: None. Drains: MARQUEZ #10 flat. Physical exam: General: Alert, Oriented x3, Cooperative HEENT: NG tube in place Neck: Supple Respiratory: Clear to auscultation bilaterally, Normal air movement Cardiovascular: No edema, Normal S1 S2 Capillary refill: <2 Seconds Gastrointestinal: Status post surgical changes. Pain seems to be well controlled. Musculoskeletal: No swelling, No contractures Integumentary: No rashes, No cyanosis Neurological: Normal speech, Normal tone, Normal affect Impression: Abdominal pain secondary to acute perforated gangrenous appendicitis status post appendectomy Fatty liver Postoperative anemia Diabetes mellitus type 2 Plan: NG tube remains in place. Patient n.p.o. Case discussed at length with surgery. Patient to get fluid bolus. Continue with aggressive IV fluids. Continue IV antibiotic therapy Zosyn. Culture positive for gram-negative rods. Await findings. Encourage incentive spirometer. Will order physical therapy. Continue to monitor on telemetry. Continue IV antibiotic therapy. Continue DVT prophylaxis. New finding of diabetes mellitus type 2. Will provide sliding scale and insulin. Monitor hemoglobin. DVT prophylaxis: Lovenox CODE STATUS: Full code Advance care planning: Home at discharge Time Spent Managing Pts Care (In Minutes): 55
[2021-04-14] MEDS ORDERED: HYDROMORPHONE HCL 0.5 MG/0.5 ML INJ IV ONE ×2 (07:00→08:00)
[2021-04-14] MEDS ORDERED: NA CHLORIDE 0.9% 500 ML IV ONE (08:03)
--- NOTE | 2021-04-14 08:36 | PN ---
Date of Progress Note: 04/14/2021 Subjective: The patient is awake and alert. Pain is controlled. His urine output is marginal. Objective: Vital Signs: Stable. He is afebrile. Abdomen: Dressing is clean, dry, and intact. Abdomen is soft with hypoactive bowel sounds. Laboratory Data: Reviewed. His white count is 9.3 with a left shift. Bands last night were 33. Ch emistry reviewed. His procalcitonin is 25. Lactic acid is 1.6 and serosanguineous fluid comes out o f his MARQUEZ. Assessment: Status post open appendectomy for perforated gangrenous appendicitis. Recommendations: Fluid bolus to improve his urine output, parenteral pain management, incentive spir ometry. Physical therapy for ambulation. IV antibiotics as ordered. Lovenox for DVT prophylaxis. Protonix. The patient is clinically stable and slowly improving. Plan of care discussed with Dr. Rob gonzalez. /MODL Voice ID: [id number] Report ID: [id number]
[2021-04-14] MEDS: ENOXAPARIN 40 MG/0.4 ML SQ SCH (09:00)
[2021-04-14] MEDS: PANTOPRAZOLE 40 MG INJ IVP SCH (09:00)
[2021-04-14] MEDS ORDERED: PANTOPRAZOLE 40 MG INJ ONE (09:57)
[2021-04-14] MEDS ORDERED: ENOXAPARIN 40 MG/0.4 ML SQ ONE (09:57)
[2021-04-14] MEDS ORDERED: NA CHLORIDE 0.9% 500 ML ONE (09:58)
[2021-04-14] MEDS ORDERED: Mastisol Adhesive Liq ONE (12:30)
[2021-04-14] MEDS ORDERED: NA CHLORIDE 0.9% 1,000 ML ONE ×2 (13:25→21:12)
[2021-04-14] MEDS ORDERED: HYDROMORPHONE HCL 0.5 MG/0.5 ML INJ ONE (13:25)
[2021-04-14] MEDS ORDERED: D50W 25 GM/50 ML SYRINGE IV PRN (16:28)
[2021-04-14] MEDS ORDERED: GLUCAGON 1 MG/VIAL IM PRN (16:28)
[2021-04-14] MEDS: HYDROMORPHONE HCL 1 MG/ML INJ IV PRN ×2 (17:30→23:14)
[2021-04-14] MEDS: INSULIN -REGULAR HUMAN 50 UNIT/0.5 ML ML SQ SCH (18:00)
[2021-04-14] MEDS ORDERED: HYDROMORPHONE HCL 1 MG/ML INJ ONE (18:15)
[2021-04-14] MEDS ORDERED: NA CHLORIDE 0.9% 100 ML ONE (21:53)
[2021-04-14] MEDS ORDERED: PIPERACIL/TAZO 3.375 GM VIAL IV ONE (21:53)
[2021-04-14 22:02] VITALS: BMI 35.9
[2021-04-15] MEDS: PIPER/TAZO/NS 3.375gm 3.375 GM/100 ML BAG IVPB SCH ×3 (00:21→16:06)
[2021-04-15] MEDS: NA CHLORIDE 0.9% 1,000 ML IV SCH ×3 (03:45→11:45)
[2021-04-15 05:21] LABS: Absolute Lymphocytes (CBC) 0.8 K/uL (0.7-4.9); Basophils % 0.2 % (0-1.3); Hematocrit 29.2 % (39.6-49.0); Lymphocytes % 7.9 % (15.3-44.8); MPV 7.3 fL (7.6-11.3); RBC Red Blood Cell Count 4.04 M/uL (4.33-5.43)
[2021-04-15] MEDS: HYDROMORPHONE HCL 1 MG/ML INJ IV PRN ×3 (05:48→20:40)
[2021-04-15 05:51] LABS: BUN Blood Urea Nitrogen 9 mg/dL (7-18); Bicarbonate 26 mmol/L (21-32); Glucose Level 118 mg/dL (74-106); Magnesium 2.5 mg/dL (1.8-2.4); Potassium 3.4 mmol/L (3.5-5.1); Sodium Level 143 mmol/L (136-145)
[2021-04-15] MEDS: INSULIN -REGULAR HUMAN 50 UNIT/0.5 ML ML SQ SCH ×4 (05:51→18:00)
--- NOTE | 2021-04-15 06:08 | P.PN ---
Subjective Date of Service: 04/15/21 Primary Care Provider: none Chief Complaint: perforated appendicitis Subjective: Improving (Currently on 2 L. Pain under control.) Physical Examination - Vital Signs Temperature: 99.5 F Blood Pressure: 118/68 Pulse: 104 Respirations: 18 Pulse Ox (%): 94 Assessment & Plan Discharge Plan: Home Plan to discharge in: Greater than 2 days Physician Review Additional Text: COVID: Negative CT scan: COMPARISON: Chest Single View dated 04/13/2021 TECHNIQUE: Biphasic, helical CT imaging of the abdomen and pelvis was performed following 100 ml non-ionic IV contrast. No oral contrast administered. All CT scans are performed using dose optimization technique as appropriate and may include automated exposure control or mA/KV adjustment according to patient size. FINDINGS: Scarring and/ or atelectasis changes are present in each lung base with no acute pleural or parenchymal process suspected. No pericardial thickening or effusion. Liver shows a diffuse fatty infiltration pattern with no focal liver lesion. No portal vein abnormality identified. Pancreas and spleen also without focal abnormalities. Gallbladder and biliary tree are also without suspicious finding. Gallstones can be occult on CT imaging. Symmetric renal function is seen with no hydronephrosis or suspicious renal mass. No pyelonephritis or acute parenchymal process. Contracted urinary bladder shows no gross abnormality. No adrenal abnormalities. No gastric dilatation or wall thickening. Prominent fluid-filled small bowel loops are present. Story are mildly prominent. This is believed to be reactive enteritis from subsequently detailed findings. The appendix is abnormal. Although air filled, the appendix is enlarged with poorly defined story. There is edematous/inflammatory stranding throughout the periappendiceal fat with small amounts of free intraperitoneal fluid present. Several punctate peritoneal extraluminal free air collections are noted. There is no abscess or drainable fluid collection at this time. Tip of the cecum is slightly thickened. Large intestine is otherwise unremarkable. No mass or bulky lymphadenopathy. No abdominal wall hernia seen. No suspicious bony findings. IMPRESSION: Perforated appendicitis. Air, fluid and stranding are present in the peritoneal cavity primarily in the periappendiceal region. There is no abscess at this time. Prominent fluid-filled small bowel loops likely secondary response to the perforated appendicitis. No small bowel obstruction. Diffuse fatty infiltration of the liver. Surgery: Date of Procedure: 04/13/2021 Surgeon: Richard Rosales MD Office Engineer: Jacquie Greyson, CHEF INSTRUCTOR Preoperative Diagnosis: Acute perforated appendicitis. Postoperative Diagnosis: Acute perforated appendicitis with acute gangrenous perforated appendicitis. Estimated Blood Loss: Minimal. Specimen: Appendix and pus. Findings: As above. Anesthesia: General. Complications: None. Drains: MARQUEZ #10 flat. Physical exam: General: Alert, Oriented x3, Cooperative HEENT: NG tube in place Neck: Supple Respiratory: Clear to auscultation bilaterally, Normal air movement Cardiovascular: No edema, Normal S1 S2 Capillary refill: <2 Seconds Gastrointestinal: Status post surgical changes. Pain seems to be well controlled. Musculoskeletal: No swelling, No contractures Integumentary: No rashes, No cyanosis Neurological: Normal speech, Normal tone, Normal affect Impression: Abdominal pain secondary to acute perforated gangrenous appendicitis status post appendectomy, fluid culture positive for E. coli Fatty liver Postoperative anemia Diabetes mellitus type 2 Plan: Patient continues to improve. Spoke with surgery. Surgery plans to remove NG tube. Start clear liquid. Will change IV fluids and decrease. Culture results show E. coli. Continue IV antibiotic therapy Zosyn. Will transition to oral medication once able to take good oral intake. Encourage incentive spirometer. Continue physical therapy. Continue to monitor on telemetry. Continue DVT prophylaxis. New finding of diabetes mellitus type 2. Will provide sliding scale and insulin. Monitor hemoglobin. DVT prophylaxis: Lovenox CODE STATUS: Full code Advance care planning: Home at discharge Time Spent Managing Pts Care (In Minutes): 55
[2021-04-15] MEDS: ENOXAPARIN 40 MG/0.4 ML SQ SCH (08:02)
[2021-04-15] MEDS: PANTOPRAZOLE 40 MG INJ IVP SCH (08:03)
[2021-04-15] MEDS ORDERED: POTASSIUM PHOS IN 0.9 % NACL 15 MMOL/250 ML BAG IV ONE (09:00)
--- NOTE | 2021-04-15 10:58 | PN ---
Date of Progress Note: 04/15/2021 Subjective: The patient is awake, alert, in no pain. No nausea or vomiting. The MARQUEZ drain put out o nly a minimal amount over the last shift. Has not had a bowel movement. Denies flatus. Objective: Vital Signs: Stable. Afebrile. MARQUEZ drain has 15 cc serosanguineous fluid. Abdomen: Soft. Positive bowel sounds. Nondistended and nontender. Skin: Wound is clean, dry and intact Laboratory Data: White count is 9.8. Left shift is improving. Chemistry reviewed. The patient has low phosphorus and potassium which is being replaced. Assessment: Status post exploratory laparotomy, and appendectomy for perforated gangrenous appendici tis. Recommendations: Cultures reviewed and patient has gram-negative rods with E coli, sensitive to Zosy n. Continue IV antibiotics. I will clamp the NG tube and start him on sips of clear liquids. We wi ll discontinue the Garcia. Encourage ambulation and incentive spirometry. Lovenox for DVT prophylaxi s. Patient clinically is improving. /MODL Voice ID: [id number] Report ID: [id number]
[2021-04-15] MEDS ORDERED: KCL 20 MEQ/100 mL IVPB 20 MEQ/100 ML BAG IV SCH (13:00)
[2021-04-15] MEDS: NACHLORIDE 0.45% 1,000 ML IV SCH (16:06)
[2021-04-15] MEDS ORDERED: POTASSIUM CL SA 10 MEQ TAB PO ONE (22:00)
[2021-04-15] MEDS ORDERED: POTASSIUM 25 MEQ EFFERV TAB PO ONE (23:45)
[2021-04-16] MEDS: PIPER/TAZO/NS 3.375gm 3.375 GM/100 ML BAG IVPB SCH ×3 (00:01→17:00)
[2021-04-16] MEDS: HYDROMORPHONE HCL 1 MG/ML INJ IV PRN ×5 (00:29→20:28)
[2021-04-16] MEDS: NACHLORIDE 0.45% 1,000 ML IV SCH ×3 (02:00→09:20)
[2021-04-16 05:52] LABS: Absolute Lymphocytes (CBC) 0.8 K/uL (0.7-4.9); Basophils % 0.1 % (0-1.3); Lymphocytes % 8.1 % (15.3-44.8); MPV 7.5 fL (7.6-11.3); RBC Red Blood Cell Count 4.05 M/uL (4.33-5.43)
--- NOTE | 2021-04-16 05:56 | P.PN ---
Subjective Date of Service: 04/16/21 Primary Care Provider: none Chief Complaint: perforated appendicitis Subjective: Other (Patient continues to improve. NG tube still in place. Patient had bowel movement and passage of gas this morning.) Physical Examination - Vital Signs Temperature: 97.9 F Blood Pressure: 160/85 Pulse: 95 Respirations: 17 Pulse Ox (%): 91 Assessment & Plan Discharge Plan: Home Plan to discharge in: 72 Hours Physician Review Additional Text: COVID: Negative CT scan: COMPARISON: Chest Single View dated 04/13/2021 TECHNIQUE: Biphasic, helical CT imaging of the abdomen and pelvis was performed following 100 ml non-ionic IV contrast. No oral contrast administered. All CT scans are performed using dose optimization technique as appropriate and may include automated exposure control or mA/KV adjustment according to patient size. FINDINGS: Scarring and/ or atelectasis changes are present in each lung base with no acute pleural or parenchymal process suspected. No pericardial thickening or effusion. Liver shows a diffuse fatty infiltration pattern with no focal liver lesion. No portal vein abnormality identified. Pancreas and spleen also without focal abnormalities. Gallbladder and biliary tree are also without suspicious finding. Gallstones can be occult on CT imaging. Symmetric renal function is seen with no hydronephrosis or suspicious renal mass. No pyelonephritis or acute parenchymal process. Contracted urinary bladder shows no gross abnormality. No adrenal abnormalities. No gastric dilatation or wall thickening. Prominent fluid-filled small bowel loops are present. Story are mildly prominent. This is believed to be reactive enteritis from subsequently detailed findings. The appendix is abnormal. Although air filled, the appendix is enlarged with poorly defined story. There is edematous/inflammatory stranding throughout the periappendiceal fat with small amounts of free intraperitoneal fluid present. Se veral punctate peritoneal extraluminal free air collections are noted. There is no abscess or drainable fluid collection at this time. Tip of the cecum is slightly thickened. Large intestine is otherwise unremarkable. No mass or bulky lymphadenopathy. No abdominal wall hernia seen. No suspicious bony findings. IMPRESSION: Perforated appendicitis. Air, fluid and stranding are present in the peritoneal cavity primarily in the periappendiceal region. There is no abscess at this time. Prominent fluid-filled small bowel loops likely secondary response to the perforated appendicitis. No small bowel obstruction. Diffuse fatty infiltration of the liver. Surgery: Date of Procedure: 04/13/2021 Surgeon: Richard Rosales MD Cotton Seed Culler: YUE Nichole Preoperative Diagnosis: Acute perforated appendicitis. Postoperative Diagnosis: Acute perforated appendicitis with acute gangrenous perforated appendicitis. Estimated Blood Loss: Minimal. Specimen: Appendix and pus. Findings: As above. Anesthesia: General. Complications: None. Drains: MARQUEZ #10 flat. Pathology: DIAGNOSIS Appendix, appendectomy: - Acute appendicitis with perforation - Fecalith identified Physical exam: General: Alert, Oriented x3, Cooperative HEENT: NG tube in place Neck: Supple Respiratory: Clear to auscultation bilaterally, Normal air movement Cardiovascular: No edema, Normal S1 S2 Capillary refill: <2 Seconds Gastrointestinal: Status post surgical changes. Pain seems to be well controlled. [place] binding in place. Musculoskeletal: No swelling, No contractures Integumentary: No rashes, No cyanosis Neurological: Normal speech, Normal tone, Normal affect Impression: Abdominal pain secondary to acute perforated gangrenous appendicitis status post appendectomy, fluid culture positive for E. coli Fatty liver Postoperative anemia Diabetes mellitus type 2 Elevated blood pressure Plan: Patient continues to improve. Patient had bowel movement this morning. Anticipate removal of NG tube. Anticipate advancement of diet. Will discuss with surgery about plan of care. IV fluids decreased yesterday. Culture results show E. coli. Continue IV antibiotic therapy Zosyn. Will transition to oral medication once able to take good oral intake. Encourage incentive spirometer. Continue physical therapy. Continue to monitor on telemetry. Continue DVT prophylaxis. New finding of diabetes mellitus type 2. Hemoglobin A1c 8.4. Will provide sliding scale and insulin. Consider oral medication at discharge. Monitor hemoglobin. Will monitor blood pressure. If greater than 140/90 consistently will consider starting medication DVT prophylaxis: Lovenox CODE STATUS: Full code Advance care planning: Home at discharge Time Spent Managing Pts Care (In Minutes): 55
[2021-04-16] MEDS: INSULIN -REGULAR HUMAN 50 UNIT/0.5 ML ML SQ SCH ×5 (06:00→21:00)
[2021-04-16 06:07] LABS: BUN Blood Urea Nitrogen 9 mg/dL (7-18); Bicarbonate 25 mmol/L (21-32); Glucose Level 140 mg/dL (74-106); Magnesium 2.2 mg/dL (1.8-2.4); Phosphorus 2.1 mg/dL (2.5-4.9); Potassium 3.7 mmol/L (3.5-5.1); Sodium Level 140 mmol/L (136-145)
[2021-04-16] MEDS ORDERED: POTASSIUM 25 MEQ EFFERV TAB PO ONE (09:00)
[2021-04-16] MEDS: ENOXAPARIN 40 MG/0.4 ML SQ SCH (09:00)
[2021-04-16] MEDS: POTASS/SODIUM PHOSPHATE 1 PKT POWD.PACK PO SCH ×2 (09:20→10:22)
[2021-04-16] MEDS: PANTOPRAZOLE 40 MG INJ IVP SCH (09:21)
--- NOTE | 2021-04-16 09:41 | PN ---
Date of Progress Note: 04/16/2021 Subjective: The patient is awake, alert, tolerating clear liquids. No nausea or vomiting. Had a nayan wel movement last night. He has been urinating on his own. Objective: Vital Signs: Stable. Afebrile. Abdomen: Benign with positive bowel sounds. Skin: Wound is clean, dry, and intact. Laboratory Data: Reviewed. Assessment: Status post exploratory laparotomy for an open appendectomy for perforated gangrenous ap pendix. Recommendations: We will discontinue the NG tube. Advance the diet as tolerated. Continue IV antib iotics. Encourage ambulation and incentive spirometry. The pathology report reviewed shows acute ap pendicitis with perforation. /MODL Voice ID: [id number] Report ID: [id number]
[2021-04-17] MEDS: PIPER/TAZO/NS 3.375gm 3.375 GM/100 ML BAG IVPB SCH ×2 (01:00→09:04)
[2021-04-17] MEDS: NACHLORIDE 0.45% 1,000 ML IV SCH (05:08)
[2021-04-17] MEDS: HYDROMORPHONE HCL 1 MG/ML INJ IV PRN ×2 (05:33→21:08)
[2021-04-17 05:47] LABS: Hematocrit 28.8 % (39.6-49.0); RBC Red Blood Cell Count 4.04 M/uL (4.33-5.43)
[2021-04-17 05:48] LABS: Basophils % 0.2 % (0-1.3); Lymphocytes % 15.6 % (15.3-44.8); MPV 7.3 fL (7.6-11.3)
[2021-04-17 05:54] LABS: BUN Blood Urea Nitrogen 9 mg/dL (7-18); Bicarbonate 29 mmol/L (21-32); Glucose Level 144 mg/dL (74-106); Magnesium 2.2 mg/dL (1.8-2.4); Phosphorus 2.4 mg/dL (2.5-4.9); Potassium 3.4 mmol/L (3.5-5.1); Sodium Level 141 mmol/L (136-145)
--- NOTE | 2021-04-17 06:00 | P.PN ---
Subjective Date of Service: 04/17/21 Primary Care Provider: none Chief Complaint: perforated appendicitis Subjective: Improving Physical Examination - Vital Signs Temperature: 98.3 F Blood Pressure: 153/79 Pulse: 86 Respirations: 18 Pulse Ox (%): 95 Assessment & Plan Discharge Plan: Home Plan to discharge in: 24 Hours Physician Review Additional Text: COVID: Negative CT scan: COMPARISON: Chest Single View dated 04/13/2021 TECHNIQUE: Biphasic, helical CT imaging of the abdomen and pelvis was performed following 100 ml non-ionic IV contrast. No oral contrast administered. All CT scans are performed using dose optimization technique as appropriate and may include automated exposure control or mA/KV adjustment according to patient size. FINDINGS: Scarring and/ or atelectasis changes are present in each lung base with no acute pleural or parenchymal process suspected. No pericardial thickening or effusion. Liver shows a diffuse fatty infiltration pattern with no focal liver lesion. No portal vein abnormality identified. Pancreas and spleen also without focal abnormalities. Gallbladder and biliary tree are also without suspicious finding. Gallstones can be occult on CT imaging. Symmetric renal function is seen with no hydronephrosis or suspicious renal mass. No pyelonephritis or acute parenchymal process. Contracted urinary bladder shows no gross abnormality. No adrenal abnormalities. No gastric dilatation or wall thickening. Prominent fluid-filled small bowel loops are present. Story are mildly prominent. This is believed to be reactive enteritis from subsequently detailed findings. The appendix is abnormal. Although air filled, the appendix is enlarged with poorly defined story. There is edematous/inflammatory stranding throughout the periappendiceal fat with small amounts of free intraperitoneal fluid present. Several punctate peritoneal extraluminal free air collections are noted. There is no abscess or drainable fluid collection at this time. Tip of the cecum is slightly thickened. Large intestine is otherwise unremarkable. No mass or bulky lymphadenopathy. No abdominal wall hernia seen. No suspicious bony findings. IMPRESSION: Perforated appendicitis. Air, fluid and stranding are present in the peritoneal cavity primarily in the periappendiceal region. There is no abscess at this time. Prominent fluid-filled small bowel loops likely secondary response to the perforated appendicitis. No small bowel obstruction. Diffuse fatty infiltration of the liver. Surgery: Date of Procedure: 04/13/2021 Surgeon: Richard Rosales MD Engagement Manager: YUE Nichole Preoperative Diagnosis: Acute perforated appendicitis. Postoperative Diagnosis: Acute perforated appendicitis with acute gangrenous perforated appendicitis. Estimated Blood Loss: Minimal. Specimen: Appendix and pus. Findings: As above. Anesthesia: General. Complications: None. Drains: MARQUEZ #10 flat. Pathology: DIAGNOSIS Appendix, appendectomy: - Acute appendicitis with perforation - Fecalith identified Physical exam: General: Alert, Oriented x3, Cooperative HEENT: NG tube in place Neck: Supple Respiratory: Clear to auscultation bilaterally, Normal air movement Cardiovascular: No edema, Normal S1 S2 Capillary refill: <2 Seconds Gastrointestinal: Status post surgical changes. Pain seems to be well controlled. Bruce binding in place. Musculoskeletal: No swelling, No contractures Integumentary: No rashes, No cyanosis Neurological: Normal speech, Normal tone, Normal affect Impression: Abdominal pain secondary to acute perforated gangrenous appendicitis status post appendectomy, fluid culture positive for E. coli Fatty liver Postoperative anemia Diabetes mellitus type 2 Elevated blood pressure Plan: Patient continues to do well. Still output noted from MARQUEZ tube. Case discussed with surgery. Surgery wants to continue to monitor the patient at least 1 more day before possible discharge. Wound culture shows positive for E. coli. Will transition to Augmentin oral. Encourage incentive spirometer. Continue physical therapy. Continue to monitor on telemetry. Continue DVT prophylaxis. New finding of diabetes mellitus type 2. Hemoglobin A1c 8.4. Will provide sliding scale and insulin. Will start Metformin daily. Monitor hemoglobin. Will transition to oral medications. Will monitor blood pressure. If greater than 140/90 consistently will consider starting medication DVT prophylaxis: Lovenox CODE STATUS: Full code Advance care planning: Home at discharge Time Spent Managing Pts Care (In Minutes): 55
[2021-04-17] MEDS: INSULIN -REGULAR HUMAN 50 UNIT/0.5 ML ML SQ SCH ×4 (07:30→21:00)
[2021-04-17 07:37] LABS: Anisocytosis 1+; Blood Morphology Comment NOTED (NOT SEEN); Platelet Estimate ADEQ; Polychromasia SLIGHT
[2021-04-17] MEDS: ENOXAPARIN 40 MG/0.4 ML SQ SCH (09:00)
[2021-04-17] MEDS ORDERED: POTASSIUM CL SA 10 MEQ TAB PO ONE ×2 (09:00→17:00)
[2021-04-17] MEDS: PANTOPRAZOLE 40 MG INJ IVP SCH (09:04)
[2021-04-17] MEDS: POTASS/SODIUM PHOSPHATE 1 PKT POWD.PACK PO SCH ×3 (09:05→12:33)
--- NOTE | 2021-04-17 09:20 | PN ---
Date of Progress Note: 04/17/2021 Subjective: The patient is awake, alert, and has just started his GI soft diet. No significant pain . He is passing gas. Had a bowel movement yesterday. His vitals were stable. He is afebrile. His MARQUEZ put out 370 cc of serosanguineous fluid. Laboratory Data: Reviewed. White count is normal. There is no left shift anymore, and the bad neut rophils are down to 4. Chemistry reviewed as well. Phosphorus and potassium being replaced. Objective: Abdomen: Soft, nondistended. Positive bowel sounds. Wound is clean, dry, intact. Assessment: Status post exploratory laparotomy for perforated appendicitis. Recommendations: Continue IV antibiotics. Encourage ambulation. Probable discharge tomorrow on ora l antibiotics. /MODL Voice ID: [id number] Report ID: [id number]
[2021-04-17] MEDS ORDERED: TRAMADOL HCL 50 MG TAB PO PRN (10:34)
[2021-04-17] MEDS ORDERED: HYDROCODONE/APAP 7.5/325 MG TAB PO PRN (10:34)
[2021-04-17] MEDS: AMOX/K CLAV 500 MG TAB PO SCH (21:09)
[2021-04-18] MEDS: NACHLORIDE 0.45% 1,000 ML IV SCH (01:31)
[2021-04-18 01:45] VITALS: O2SAT 98
[2021-04-18] MEDS: HYDROMORPHONE HCL 1 MG/ML INJ IV PRN (04:39)
[2021-04-18 05:47] LABS: Absolute Lymphocytes (CBC) 1.3 K/uL (0.7-4.9); Basophils % 0.6 % (0-1.3); Hematocrit 29.3 % (39.6-49.0); Lymphocytes % 21.1 % (15.3-44.8); MPV 7.6 fL (7.6-11.3)
[2021-04-18 05:57] LABS: BUN Blood Urea Nitrogen 8 mg/dL (7-18); Bicarbonate 27 mmol/L (21-32); Glucose Level 134 mg/dL (74-106); Magnesium 1.8 mg/dL (1.8-2.4); Potassium 3.3 mmol/L (3.5-5.1); Sodium Level 138 mmol/L (136-145)
--- NOTE | 2021-04-18 06:06 | P.PN ---
Subjective Date of Service: 04/18/21 Primary Care Provider: none Chief Complaint: perforated appendicitis Subjective: Improving Physical Examination - Vital Signs Temperature: 97.7 F Blood Pressure: 117/73 Pulse: 82 Respirations: 20 Pulse Ox (%): 95 Assessment & Plan Discharge Plan: Home Plan to discharge in: 24 Hours Physician Review Additional Text: COVID: Negative CT scan: COMPARISON: Chest Single View dated 04/13/2021 TECHNIQUE: Biphasic, helical CT imaging of the abdomen and pelvis was performed following 100 ml non-ionic IV contrast. No oral contrast administered. All CT scans are performed using dose optimization technique as appropriate and may include automated exposure control or mA/KV adjustment according to patient size. FINDINGS: Scarring and/ or atelectasis changes are present in each lung base with no acute pleural or parenchymal process suspected. No pericardial thickening or effusion. Liver shows a diffuse fatty infiltration pattern with no focal liver lesion. No portal vein abnormality identified. Pancreas and spleen also without focal abnormalities. Gallbladder and biliary tree are also without suspicious finding. Gallstones can be occult on CT imaging. Symmetric renal function is seen with no hydronephrosis or suspicious renal mass. No pyelonephritis or acute parenchymal process. Contracted urinary bladder shows no gross abnormality. No adrenal abnormalities. No gastric dilatation or wall thickening. Prominent fluid-filled small bowel loops are present. Story are mildly prominent. This is believed to be reactive enteritis from subsequently detailed findings. The appendix is abnormal. Although air filled, the appendix is enlarged with poorly defined story. There is edematous/inflammatory stranding throughout the periappendiceal fat with small amounts of free intraperitoneal fluid present. Several punctate peritoneal extraluminal free air collections are noted. There is no abscess or drainable fluid collection at this time. Tip of the cecum is slightly thickened. Large intestine is otherwise unremarkable. No mass or bulky lymphadenopathy. No abdominal wall hernia seen. No suspicious bony findings. IMPRESSION: Perforated appendicitis. Air, fluid and stranding are present in the peritoneal cavity primarily in the periappendiceal region. There is no abscess at this time. Prominent fluid-filled small bowel loops likely secondary response to the perforated appendicitis. No small bowel obstruction. Diffuse fatty infiltration of the liver. Surgery: Date of Procedure: 04/13/2021 Surgeon: Richard Rosales MD Vp Of Global Marketing: YUE Nichole Preoperative Diagnosis: Acute perforated appendicitis. Postoperative Diagnosis: Acute perforated appendicitis with acute gangrenous perforated appendicitis. Estimated Blood Loss: Minimal. Specimen: Appendix and pus. Findings: As above. Anesthesia: General. Complications: None. Drains: MARQUEZ #10 flat. Pathology: DIAGNOSIS Appendix, appendectomy: - Acute appendicitis with perforation - Fecalith identified Physical exam: General: Alert, Oriented x3, Cooperative HEENT: NG tube in place Neck: Supple Respiratory: Clear to auscultation bilaterally, Normal air movement Cardiovascular: No edema, Normal S1 S2 Capillary refill: <2 Seconds Gastrointestinal: Status post surgical changes. Pain seems to be well controlled. Bruce binding in place. Musculoskeletal: No swelling, No contractures Integumentary: No rashes, No cyanosis Neurological: Normal speech, Normal tone, Normal affect Impression: Abdominal pain secondary to acute perforated gangrenous appendicitis status post appendectomy, fluid culture positive for E. coli Fatty liver Postoperative anemia Diabetes mellitus type 2 Elevated blood pressure Plan: Patient continues to do well. Patient doing well at this time. Case discussed with surgery. We will plan for discharge today. Wound culture shows positive for E. coli. Will transition to Augmentin oral. Encourage incentive spirometer. Continue physical therapy. Continue to monitor on telemetry. Continue DVT prophylaxis. New finding of diabetes mellitus type 2. Hemoglobin A1c 8.4. Will provide sliding scale and insulin. Will start Metformin daily. Monitor hemoglobin. Will transition to oral medications. Will monitor blood pressure. If greater than 140/90 consistently will consider starting medication DVT prophylaxis: Lovenox CODE STATUS: Full code Advance care planning: Home at discharge Time Spent Managing Pts Care (In Minutes): 55
[2021-04-18] MEDS ORDERED: PANTOPRAZOLE 40MG TABLET PO SCH (06:30)
[2021-04-18] MEDS: INSULIN -REGULAR HUMAN 50 UNIT/0.5 ML ML SQ SCH (07:30)
[2021-04-18] MEDS ORDERED: METFORMIN HCL 500 MG TAB PO SCH (08:00)
[2021-04-18] MEDS: AMOX/K CLAV 500 MG TAB PO SCH (08:41)
[2021-04-18] MEDS: ENOXAPARIN 40 MG/0.4 ML SQ SCH (08:42)
[2021-04-18 08:53] VITALS: BP 117/73; TEMP 97.7
--- NOTE | 2021-04-18 08:54 | P.DS ---
Admission Date: 04/13/21 Discharge Date: 04/18/21 Primary Care Provider: none Disposition: ROUTINE DISCHARGE Discharge Condition: GOOD Reason for Admission: perforated appendicitis Consultations: Surgery-Dr. Rosales Procedures: COVID: Negative CT scan: COMPARISON: Chest Single View dated 04/13/2021 TECHNIQUE: Biphasic, helical CT imaging of the abdomen and pelvis was performed following 100 ml non-ionic IV contrast. No oral contrast administered. All CT scans are performed using dose optimization technique as appropriate and may include automated exposure control or mA/KV adjustment according to patient size. FINDINGS: Scarring and/ or atelectasis changes are present in each lung base with no acute pleural or parenchymal process suspected. No pericardial thickening or effusion. Liver shows a diffuse fatty infiltration pattern with no focal liver lesion. No portal vein abnormality identified. Pancreas and spleen also without focal abnormalities. Gallbladder and biliary tree are also without suspicious finding. Gallstones can be occult on CT imaging. Symmetric renal function is seen with no hydronephrosis or suspicious renal mass. No pyelonephritis or acute parenchymal process. Contracted urinary bladder shows no gross abnormality. No adrenal abnormalities. No gastric dilatation or wall thickening. Prominent fluid-filled small bowel loops are present. Story are mildly prominent. This is believed to be reactive enteritis from subsequently detailed findings. The appendix is abnormal. Although air filled, the appendix is enlarged with poorly defined story. There is edematous/inflammatory stranding throughout the periappendiceal fat with small amounts of free intraperitoneal fluid present. Several punctate peritoneal extraluminal free air collections are noted. There is no abscess or drainable fluid collection at this time. Tip of the cecum is slightly thickened. Large intestine is otherwise unremarkable. No mass or bulky lymphadenopathy. No abdominal wall hernia seen. No suspicious bony findings. IMPRESSION: Perforated appendicitis. Air, fluid and stranding are present in the peritoneal cavity primarily in the periappendiceal region. There is no abscess at this time. Prominent fluid-filled small bowel loops likely secondary response to the perforated appendicitis. No small bowel obstruction. Diffuse fatty infiltration of the liver. Surgery: Date of Procedure: 04/13/2021 Surgeon: Richard Rosales MD [employer] Yard[employer] Control Operator: YUE Nichole Preoperative Diagnosis: Acute perforated appendicitis. Postoperative Diagnosis: Acute perforated appendicitis with acute gangrenous perforated appendicitis. Estimated Blood Loss: Minimal. Specimen: Appendix and pus. Findings: As above. Anesthesia: General. Complications: None. Drains: MARQUEZ #10 flat. Pathology: DIAGNOSIS Appendix, appendectomy: - Acute appendicitis with perforation - Fecalith identified Medical problem List: Abdominal pain secondary to acute perforated gangrenous appendicitis status post appendectomy, fluid culture positive for E. coli Fatty liver Postoperative anemia Diabetes mellitus type 2 Elevated blood pressure Brief History of Present Illness: 60-year-old male presented with abdominal pain. Pain was greater to the right lower quadrant. Some nausea and vomiting noted. Patient found to have perforated appendicitis on CT scan. Patient admitted for treatment. Surgery was consulted. Hospital Course: Patient presented with nausea, vomiting and abdominal pain. Patient found to have acute perforated gangrenous appendicitis. Patient was admitted for treat ment. Patient seen and evaluated by surgery. Surgery performed appendectomy. Patient tolerated procedure well. Postoperatively patient improved. Fluid culture was positive for E. coli. At discharge patient able to ambulate and tolerate food. Patient has had good bowel movements. Patient doing well and is released by surgery today. At discharge the patient will continue with Augmentin and pain medication which will be provided by surgery. Patient will continue with surgery recommendations. No heavy lifting, pushing or pulling. Recommend follow-up with surgery within 1 week. Continue with surgery recommendations and instructions. Patient with diabetes mellitus type 2. This is a new diagnosis. Hemoglobin A1c 8.4. Blood sugars well controlled with new medication Metformin. At discharge patient will continue with metformin 500 mg daily. Recommend to maintain blood sugar less than 140 fasting and less than 200 after meals. Further adjustment in medication can be done by his PCP. Recommend to monitor blood sugars at least twice daily. Recommend to recheck hemoglobin A1c every 3 months to monitor his progress. Patient plans to establish care with a PCP in the area to continue his care. Patient with fatty liver. Education on fatty liver provided. Lifestyle modification education provided. Patient may benefit with GI evaluation as an outpatient to further address. Patient with postoperative anemia. Hemoglobin stable at this time. At discharge patient will continue with multivitamin with iron daily. Recommend to recheck CBC in 2 to 4 weeks to monitor his progress. Patient had mild elevation in blood pressure. This can be monitored as an outpatient. If blood pressures remain above 140/90 patient may require medication in the future. This can be further addressed by his PCP. Vital Signs/Physical Exam: Temp Pulse Resp BP Pulse Ox 97.7 F 82 20 117/73 95 04/18/21 08:53 04/18/21 08:53 04/18/21 08:53 04/18/21 08:53 04/18/21 08:53 General: Alert, In no apparent distress, Oriented x3, Cooperative HEENT: Atraumatic Neck: Supple Respiratory: Clear to auscultation bilaterally, Normal air movement Cardiovascular: Normal pulses, Regular rate/rhythm Gastrointestinal: Normal bowel sounds, Other (Postop changes noted. Abdominal binding in place. MARQUEZ tube in place.) Musculoskeletal: No contractures, No erythema, No tenderness, No warmth Integumentary: No tenderness/swelling Neurological: Normal speech, Normal strength at 5/5 x4 extr, Normal tone Laboratory Data at Discharge: WBC 6.20 K/uL (4.3-10.9) 04/18/21 04:53 Hgb 9.0 g/dL (13.6-17.9) L 04/18/21 04:53 Hct 29.3 % (39.6-49.0) L 04/18/21 04:53 Plt Count 300 K/uL (152-406) 04/18/21 04:53 PT 16.1 SECONDS (9.5-12.5) H 04/13/21 08:48 INR 1.40 04/13/21 08:48 Sodium 138 mmol/L (136-145) 04/18/21 04:53 Potassium 3.3 mmol/L (3.5-5.1) L 04/18/21 04:53 BUN 8 mg/dL (7-18) 04/18/21 04:53 Creatinine 0.43 mg/dL (0.55-1.3) L 04/18/21 04:53 Glucose 134 mg/dL (74-106) H 04/18/21 04:53 Phosphorus 2.4 mg/dL (2.5-4.9) L 04/17/21 05:17 Magnesium 1.8 mg/dL (1.8-2.4) 04/18/21 04:53 Total Bilirubin 0.7 mg/dL (0.2-1.0) 04/13/21 08:48 AST 31 U/L (15-37) 04/13/21 08:48 ALT 44 U/L (12-78) 04/13/21 08:48 Alkaline Phosphatase 90 U/L (45-117) 04/13/21 08:48 Lipase 33 U/L (73-393) L 04/13/21 08:48 Home Medications: Docusate [Colace Cap*] 100 mg PO DAILY PRN #30 cap 04/18/21 Metformin HCl [Glucophage*] 500 mg PO DAILY WITH BREAKFAST #30 tab 04/18/21 Multivitamin with Iron [Daily Vitamin + Iron] 1 each PO DAILY #90 tablet 04/18/21 New Medications: Docusate [Colace Cap*] 100 mg PO DAILY PRN #30 cap PRN Reason: Constipation Multivitamin with Iron [Daily Vitamin + Iron] 1 each PO DAILY #90 tablet Metformin HCl [Glucophage*] 500 mg PO DAILY WITH BREAKFAST #30 tab Physician Discharge Instructions: Patient presented with nausea, vomiting and abdominal pain. Patient found to have acute perforated gangrenous appendicitis. Patient was admitted for treatment. Patient seen and evaluated by surgery. Surgery performed appendectomy. Patient tolerated procedure well. Postoperatively patient improved. Fluid culture was positive for E. coli. At discharge patient able to ambulate and tolerate food. Patient has had good bowel movements. Patient doing well and is released by surgery today. At discharge the patient will continue with Augmentin and pain medication which will be provided by surgery. Patient will continue with surgery recommendations. No heavy lifting, pushing or pulling. Recommend follow-up with surgery within 1 week. Continue with surgery recommendations and instructions. Patient with diabetes mellitus type 2. This is a new diagnosis. Hemoglobin A1c 8.4. Blood sugars well controlled with new medication Metformin. At discharge patient will continue with metformin 500 mg daily. Recommend to maintain blood sugar less than 140 fasting and less than 200 after meals. Further adjustment in medication can be done by his PCP. Recommend to monitor blood sugars at least twice daily. Recommend to recheck hemoglobin A1c every 3 months to monitor his progress. Patient plans to establish care with a PCP in the area to continue his care. Patient with fatty liver. Education on fatty liver provided. Lifestyle modification education provided. Patient may benefit with GI evaluation as an outpatient to further address. Patient with postoperative anemia. Hemoglobin stable at this time. At discharge patient will continue with multivitamin with iron daily. Recommend to recheck CBC in 2 to 4 weeks to monitor his progress. Patient had mild elevation in blood pressure. This can be monitored as an outpatient. If blood pressures remain above 140/90 patient may require medication in the future. This can be further addressed by his PCP. Diet: ADA Activity: No lifting more than 10 lbs Followup: NONE,NONE [Primary Care Provider] - Richard Rosales MD [ACTIVE - CAN ADMIT] - 1 Week Time spent managing pt's care (in minutes): 55
[2021-04-18] MEDS ORDERED: POTASSIUM CL SA 10 MEQ TAB PO ONE (09:00)
[2021-04-18] MEDS ORDERED: MAGNESIUM SULFATE 1 gm IVPB 1 GM/100 ML BAG IV ONE (09:00)
--- NOTE | 2021-04-18 09:16 | PN ---
Date of Progress Note: 04/18/2021 Subjective: Patient with no complaint. Vitals stable. Afebrile. Tolerating diet. Ambulating. Pa in controlled with p.o. pain medication. White count is normal. There is no left shift. Abdomen is benign. There is serosanguineous drainage from the MARQUEZ drain. Assessment: Status post exploratory laparotomy and appendectomy for perforated appendicitis. Recommendations: The patient is cleared from Surgery for discharge. Augmentin and Tylenol No.3 pres cription given. Discharge instructions given. The patient is to follow up with me in 1 week. Disch arge plan discussed with Dr. Jacobs. /HARJEET Voice ID: [id number] Report ID: [id number]
[2021-04-18 10:54] LABS: Platelet Estimate ADEQ
[2021-04-18 10:55] LABS: Blood Morphology Comment NOT SEEN (NOT SEEN)
== END 2021-04-18 10:46 | disposition home or self-care (01) | DRG 340 ==
LOC: ER 08:10 → ERHOLD 10:23 → 2ND 04-14 21:23
PROVIDERS: ADMIT Family Medicine; ATTEND Family Medicine
PROC: 0WJG4ZZ Inspection of Peritoneal Cavity, Percutaneous Endoscopic Approach (ICD-10-PCS; 2021-04-13)
PROC: 0DTJ0ZZ Resection of Appendix, Open Approach (ICD-10-PCS; principal; 2021-04-13 13:00)
DX: K35.32 Acute appendicitis with perforation, localized peritonitis, and gangrene, without abscess (principal); B96.20 Unspecified Escherichia coli [E. coli] as the cause of diseases classified elsewhere; K76.0 Fatty (change of) liver, not elsewhere classified; D64.9 Anemia, unspecified; E11.9 Type 2 diabetes mellitus without complications; R03.0 Elevated blood-pressure reading, without diagnosis of hypertension; Z20.822 Contact with and (suspected) exposure to COVID-19
CPT/HCPCS: 36415; 71045; 74177; 80048; 80076; 82565; 82947; 83036; 83605; 83690; 83735; 83880; 84100; 84132; 84145; 84484; 85025; 85610; 86850; 86900; 86901; 87040; 87070; 87075; 87077; 87186; 87205; 88304; 93005; 94010; 96374; 96375; 97116; 97162; 97530; 99285; C9113; J0330; J1170; J1650; J2250; J2370; J2405; J2543; J2704; J2710; J3010; J3475; J3480; J7030; J7040; J7120; Q9967; U0003